=== PATIENT | female | born 1995 | race Hispanic/Latino ===

== ENCOUNTER 2022-11-04 20:57 | Emergency (ER) | payer OTHER ==
[~2022-11-04] VITALS: Ht 157.5 cm; Wt 88.7 kg
[2022-11-04] MEDS ORDERED: CEFTRIAXONE 1 GM VIAL IM ONE (21:15)
[2022-11-04] MEDS ORDERED: ACETAMINOPHEN 325 MG TAB PO ONE (21:15)
[2022-11-04] MEDS ORDERED: SODIUM CHLORIDE 0.9% 1000ML 1,000 ML IV ONE (21:15)
[2022-11-04] MEDS ORDERED: ACETAMINOPHEN 325 MG TAB ONE (21:49)
[2022-11-04] MEDS ORDERED: CEFTRIAXONE 1 GM VIAL ONE (21:49)
[2022-11-04] MEDS ORDERED: SODIUM CHLORIDE 0.9% 1000ML 1,000 ML ONE (21:49)
== END 2022-11-05 00:58 | disposition other institution (70) ==
LOC: FSED 21:04
DX: O86.00 Infection of obstetric surgical wound, unspecified (principal); L03.311 Cellulitis of abdominal wall; D72.829 Elevated white blood cell count, unspecified; Z20.822 Contact with and (suspected) exposure to COVID-19
CPT/HCPCS: 76705; 76856; 80053; 81003; 83605; 85025; 87040; 99284; J0696; J7030; U0002